=== PATIENT | male | born 1935 | race Caucasian/White ===

== ENCOUNTER 2024-07-12 04:12 | Inpatient (IN) | payer OTHER, MEDICARE, BC ==
--- NOTE | 2024-07-12 04:29 | ED ---
SOB HPI - General Chief Complaint: Shortness of Breath Stated Complaint: FANNY Time Seen by Provider: 07/12/24 04:12 Source: EMS, RN notes reviewed, old records reviewed, Caregiver Mode of arrival: EMS Limitations: altered mental status - History of Present Illness Initial Comments: This is an 89-year-old male to the ER for hypoxia shortness of breath history of COPD MD Complaint: shortness of breath, cough -: hour(s) Severity: moderate Severity scale (1-10): 5 Consistency: constant Improves With: nothing Known History Of: COPD, congestive heart failure Context: recent URI, anxiety, recent illness Associated Symptoms: cough, sputum production Treatments Prior to Arrival: none - Related Data Home Medications Medication Instructions Recorded Confirmed Amiodarone [Cordarone] 200 mg PO DAILY 07/12/24 07/12/24 Apixaban [Eliquis] 5 mg PO BID 07/12/24 07/12/24 Budesonide [Pulmicort] 0.5 mg INHALATION RT-BID 07/12/24 07/12/24 Cholecalciferol [Vitamin D3 (25 25 mcg PO DAILY 07/12/24 07/12/24 Mcg = 1000 Iu)] Empagliflozin [Jardiance] 10 mg PO DAILY 07/12/24 07/12/24 Ferrous Sulfate [Iron (65 MG 325 mg PO DAILY 07/12/24 07/12/24 Elemental)] Gabapentin 600 mg PO HS 07/12/24 07/12/24 INSULIN LISPRO (HumaLOG) [humaLOG] 5 units SQ AC-TID 07/12/24 07/12/24 Ipratropium-Albuterol Nebulize 3 ml INHALATION RT-Q6H 07/12/24 07/12/24 [Duoneb 0.5 mg-3 mg/3 ml Soln] Multivitamins, Thera [Multivitamin 1 tab PO DAILY 07/12/24 07/12/24 (formulary)] Naloxone HCl 0.4 mg IM BID PRN 07/12/24 07/12/24 Omeprazole [PriLOSEC] 40 mg PO DAILY 07/12/24 07/12/24 Pramipexole [Mirapex] 1 mg PO HS 07/12/24 07/12/24 guaiFENesin [guaiFENesin Oral 200 mg PO Q4H PRN 07/12/24 07/12/24 Solution] Previous Rx's Medication Instructions Recorded Atorvastatin [Lipitor] 10 mg PO HS tab 07/14/24 Insulin Glargine,Hum.rec.anlog 30 units SQ HS #0 07/14/24 [Lantus Solostar Pen] Losartan [Cozaar] 50 mg PO DAILY@1300 #0 07/14/24 Metoprolol Tartrate [Lopressor] 25 mg PO BID tab 07/14/24 Pantoprazole [Protonix] 40 mg PO AC-BRKFST tab 07/14/24 Allergies Allergy/AdvReac Type Severity Reaction Status Date / Time warfarin AdvReac Confusion Verified 07/12/24 08:26 Review of Systems ROS Statement: Those systems with pertinent positive or pertinent negative responses have been documented in the HPI. ROS Other: All systems not noted in ROS Statement are negative. Past Medical History Past Medical History: Atrial Fibrillation, COPD, Diabetes Mellitus, Hyperli pidemia, Respiratory Disorder, Sleep Apnea/CPAP/BIPAP History of Any Multi-Drug Resistant Organisms: None Reported Past Surgical History: No Surgical Hx Reported, Pacemaker Past Psychological History: No Psychological Hx Reported Smoking Status: Never smoker Past Alcohol Use History: None Reported Past Drug Use History: None Reported General Exam General appearance: alert, in no apparent distress Head exam: Present: atraumatic, normocephalic, normal inspection Eye exam: Present: normal appearance, PERRL, EOMI. Absent: scleral icterus, conjunctival injection, periorbital swelling ENT exam: Present: normal exam, mucous membranes moist Neck exam: Present: normal inspection. Absent: tenderness, meningismus, lymphadenopathy Respiratory exam: Present: normal lung sounds bilaterally. Absent: respiratory distress, wheezes, rales, rhonchi, stridor Cardiovascular Exam: Present: regular rate, normal rhythm, normal heart sounds. Absent: systolic murmur, diastolic murmur, rubs, gallop, clicks GI/Abdominal exam: Present: soft, normal bowel sounds. Absent: distended, tenderness, guarding, rebound, rigid Extremities exam: Present: normal inspection, full ROM, normal capillary refill. Absent: tenderness, pedal edema, joint swelling, calf tenderness Back exam: Present: normal inspection Neurological exam: Present: alert, oriented X3, CN II-XII intact Psychiatric exam: Present: normal affect, normal mood Skin exam: Present: warm, dry, intact, normal color. Absent: rash Course Vital Signs 07/12/24 07/12/24 07/12/24 04:13 05:01 05:07 Temperature 98.1 F Pulse Rate 68 79 68 Respiratory 18 18 18 Rate Blood Pressure 92/53 O2 Sat by Pulse 96 Oximetry 07/12/24 07/12/24 07/12/24 06:40 07:22 08:18 Temperature 98.8 F Pulse Rate 70 72 71 Respiratory 20 22 22 Rate Blood Pressure 120/64 118/54 104/55 O2 Sat by Pulse 91 L 94 L 97 Oximetry 07/12/24 07/12/24 07/12/24 08:32 08:42 10:20 Temperature Pulse Rate 70 68 73 Respiratory 22 Rate Blood Pressure 98/44 O2 Sat by Pulse 95 100 Oximetry 07/12/24 07/12/24 07/12/24 11:02 11:48 11:58 Temperature Pulse Rate 70 70 76 Respiratory 20 Rate Blood Pressure 99/48 O2 Sat by Pulse 96 Oximetry 07/12/24 07/12/24 07/12/24 12:28 13:31 15:00 Temperature Pulse Rate 75 80 82 Respiratory 20 20 20 Rate Blood Pressure 118/49 99/48 109/45 O2 Sat by Pulse 99 97 97 Oximetry 07/12/24 07/12/24 07/12/24 15:32 15:41 16:00 Temperature Pulse Rate 78 84 85 Respiratory 18 Rate Blood Pressure 100/62 O2 Sat by Pulse 99 Oximetry 07/12/24 17:41 Temperature 98 F Pulse Rate 87 Respiratory 18 Rate Blood Pressure 114/57 O2 Sat by Pulse 96 Oximetry - Reevaluation(s) Reevaluation #1: 07/12/24 04:58 Medical records reviewed Reevaluation #2: Patient remains in significant shortness of breath here in the ER Reevaluation #3: Patient informed of results questions answered Reevaluation #4: Was pt. sent in by a medical professional or institution (, PA, DRY KILN BURNER, urgent care, hospital, or fpc...) When possible be specific @ -no Did you speak to anyone other than the patient for history (EMS, parent, family, police, friend...)? What history was obtained from this source @ -no Did you review nursing and triage notes (agree or disagree)? Why? @ -agree Are old charts reviewed (outside hosp., previous admission, EMS record, old EKG, old radiological studies, urgent care reports/EKG's, fpc records)? Report findings @ -yes Differential Diagnosis (chest pain, altered mental status, abdominal pain women, abdominal pain men, vaginal bleeding, weakness, fever, dyspnea, syncope, headache, dizziness, GI bleed, back pain, seizure, CVA, palpatations, mental health, musculoskeletal)? @ -prior EKG interpreted by me (3pts min.). @ -yes X-rays interpreted by me (1pt min.). @ -yes negative for acute disease CT interpreted by me (1pt min.). @ -no U/S interpreted by me (1pt. min.). @ -no What testing was considered but not performed or refused? (CT, X-rays, U/S, labs)? Why? @ -none What meds were considered but not given or refused? Why? @ -none Did you discuss the management of the patient with other professionals (professionals i.e. , PA, [facility] K[facility] BURNER, lab, RT, psych nurse, socially responsible investment adviser, surgery nurse, teacher, chief security and safety officer, correctional case manager)? Give summary @ -no Was smoking cessation discussed for >3mins.? @ -no Was critical care preformed (if so, how long)? @ -no Were there social determinants of health that impacted care today? How? (Homelessness, low income, unemployed, alcoholism, drug addiction, transportation, low edu. Level, literacy, decrease access to med. care, senior care, rehab)? @ -none Was there de-escalation of care discussed even if they declined (Discuss DNR or withdrawal of care, Hospice)? DNR status @ -no What co-morbidities impacted this encounter? (DM, HTN, Smoking, COPD, CAD, Cancer, CVA, ARF, Chemo, Hep., AIDS, mental health diagnosis, sleep apnea, morbid obesity)? @ -none Was patient admitted / discharged? Hospital course, mention meds given and route, prescriptions, significant lab abnormalities, going to OR and other pertinent info. @ -89 female to ER for COPD exacerbation severe shortness of breath complicated by influenza with pneumonia, viral pneumonia will admit for supportive care for influenza breathing treatments for respiratory distress Admitted Undiagnosed new problem with uncertain prognosis? @ -no Drug Therapy requiring intensive monitoring for toxicity (Heparin, Nitro, Insulin, Cardizem)? @ -no Were any procedures done? @ -no Diagnosis/symptom? @ -COPD influenza and viral pneumonia Acute, or Chronic, or Acute on Chronic? @ -Acute Uncomplicated (without systemic symptoms) or Complicated (systemic symptoms)? @ -Complicated Side effects of treatment? @ -no Exacerbation, Progression, or Severe Exacerbation? @ -exacerbation Poses a threat to life or bodily function? How? (Chest pain, USA, CT, pneumonia, PE, COPD, DKA, ARF, appy, cholecystitis, CVA, Diverticulitis, Homicidal, Suicidal, threat to staff... and all critical care pts) @ -yes extremes of age Reevaluation #5: Differential Dyspnea: Coronary syndrome, arrhythmia, tamponade, asthma, COPD, pulmonary embolism, pneumonia, pneumothorax, pulmonary effusion, anaphylaxis, diabetic ketoacidosis, flailed chest, pulmonary contusion, diaphragmatic rupture, anemia, neuromuscular, this is not meant to be an all-inclusive list. - Consultations Consultation #1: Spoke with admitting physicians who agreed admit this patient Medical Decision Making - Medical Decision Making 89 female to ER strong history of COPD coming in for severe shortness of breath, patient is having acute bronchitis exacerbated by influenza with concern for viral pneumonia on x-ray. Patient will be admitted for breathing treatments and supportive care - Lab Data Result diagrams: 07/13/24 07:48 07/14/24 06:46 Lab Results 07/12/24 07/12/24 07/12/24 Range/Units 04:39 04:43 04:43 WBC 16.1 H (3.8-10.6) k/uL RBC 2.98 L (4.30-5.90) m/uL Hgb 8.6 L (13.0-17.5) gm/dL Hct 27.8 L (39.0-53.0) % MCV 93.4 (80.0-100.0) fL MCH 29.0 (25.0-35.0) pg MCHC 31.0 (31.0-37.0) g/dL RDW 15.3 (11.5-15.5) % Plt Count 154 (150-450) k/uL MPV 9.0 Neutrophils % 96 % Lymphocytes % 2 % Monocytes % 2 % Eosinophils % 0 % Basophils % 0 % Neutrophils # 15.4 H (1.3-7.7) k/uL Lymphocytes # 0.3 L (1.0-4.8) k/uL Monocytes # 0.3 (0-1.0) k/uL Eosinophils # 0.1 (0-0.7) k/uL Basophils # 0.0 (0-0.2) k/uL Hypochromasia Moderate PT 11.3 (10.0-12.5) sec INR 1.0 (<1.2) APTT 23.6 (22.0-30.0) sec VBG pH 7.36 (7.31-7.41) VBG pCO2 63 H (37-51) mmHg VBG HCO3 36 H (24-28) mmol/L Sodium (137-145) mmol/L Potassium (3.5-5.1) mmol/L Chloride (98-107) mmol/L Carbon Dioxide (22-30) mmol/L Anion Gap mmol/L BUN (9-20) mg/dL Creatinine (0.66-1.25) mg/dL Est GFR (CKD-EPI)AfAm (>60 ml/min/1.73 sqM) Est GFR (CKD-EPI)NonAf (>60 ml/min/1.73 sqM) Glucose (74-99) mg/dL Calcium (8.4-10.2) mg/dL Magnesium (1.6-2.3) mg/dL Total Bilirubin (0.2-1.3) mg/dL AST (17-59) U/L ALT (4-49) U/L Alkaline Phosphatase (38-126) U/L Troponin I (0.000-0.034) ng/mL NT-Pro-B Natriuret Pep pg/mL Total Protein (6.3-8.2) g/dL Albumin (3.5-5.0) g/dL Procalcitonin (0.02-0.50) ng/mL 07/12/24 07/12/24 07/12/24 Range/Units 04:43 04:43 04:43 WBC (3.8-10.6) k/uL RBC (4.30-5.90) m/uL Hgb (13.0-17.5) gm/dL Hct (39.0-53.0) % MCV (80.0-100.0) fL MCH (25.0-35.0) pg MCHC (31.0-37.0) g/dL RDW (11.5-15.5) % Plt Count (150-450) k/uL MPV Neutrophils % % Lymphocytes % % Monocytes % % Eosinophils % % Basophils % % Neutrophils # (1.3-7.7) k/uL Lymphocytes # (1.0-4.8) k/uL Monocytes # (0-1.0) k/uL Eosinophils # (0-0.7) k/uL Basophils # (0-0.2) k/uL Hypochromasia PT (10.0-12.5) sec INR (<1.2) APTT (22.0-30.0) sec VBG pH (7.31-7.41) VBG pCO2 (37-51) mmHg VBG HCO3 (24-28) mmol/L Sodium 135 L (137-145) mmol/L Potassium 4.7 (3.5-5.1) mmol/L Chloride 98 (98-107) mmol/L Carbon Dioxide 36 H (22-30) mmol/L Anion Gap 1 mmol/L BUN 44 H (9-20) mg/dL Creatinine 1.13 (0.66-1.25) mg/dL Est GFR (CKD-EPI)AfAm 67 (>60 ml/min/1.73 sqM) Est GFR (CKD-EPI)NonAf 58 (>60 ml/min/1.73 sqM) Glucose 257 H (74-99) mg/dL Calcium 8.1 L (8.4-10.2) mg/dL Magnesium 2.5 H (1.6-2.3) mg/dL Total Bilirubin 0.6 (0.2-1.3) mg/dL AST 40 (17-59) U/L ALT 36 (4-49) U/L Alkaline Phosphatase 111 (38-126) U/L Troponin I 0.016 (0.000-0.034) ng/mL NT-Pro-B Natriuret Pep 707 pg/mL Total Protein 5.0 L (6.3-8.2) g/dL Albumin 2.7 L (3.5-5.0) g/dL Procalcitonin 0.09 (0.02-0.50) ng/mL - EKG Data -: EKG Interpreted by Me (EKG is sinus 66 TX 142 QRS 102 QTc 442) - Radiology Data Radiology results: report reviewed (Chest x-ray shows bibasilar infiltrate), image reviewed Disposition Clinical Impression: COPD (chronic obstructive pulmonary disease), Flu, Acute exacerbation of chronic obstructive pulmonary disease, Influenza A Disposition: ADMITTED IP TO THIS HOSP Condition: Serious Is patient prescribed a controlled substance at d/c from ED?: No Time of Disposition: 05:00
[2024-07-12 04:49] LABS: VBG PH 7.36 (7.31-7.41)
[2024-07-12 04:50] LABS: Basophils % (A) 0 %; Eosinophils # (A) 0.1 k/uL (0-0.7); Eosinophils % (A) 0 %; HCT 27.8 % (39.0-53.0); HGB 8.6 gm/dL (13.0-17.5); Hypochromasia Moderate; Lymphocytes # (A) 0.3 k/uL (1.0-4.8); Lymphocytes % (A) 2 %; MCV 93.4 fL (80.0-100.0); Monocytes # (A) 0.3 k/uL (0-1.0); Monocytes % (A) 2 %; Neutrophils # (A) 15.4 k/uL (1.3-7.7); Neutrophils % (A) 96 %; Platelet Count 154 k/uL (150-450); RBC 2.98 m/uL (4.30-5.90); RDW 15.3 % (11.5-15.5); WBC 16.1 k/uL (3.8-10.6)
[2024-07-12] MEDS: IPRATROPIUM-ALBUTEROL 3 ML NEB INHALATION STA ×2 (04:57→08:21)
[2024-07-12 04:59] LABS: ALT 36 U/L (4-49); AST 40 U/L (17-59); African American GFR (CKD) 67 (>60 ml/min/1.73 sqM); Albumin 2.7 g/dL (3.5-5.0); Alkaline Phosphatase 111 U/L (38-126); Anion Gap 1 mmol/L; Blood Urea Nitrogen 44 mg/dL (9-20); Calcium 8.1 mg/dL (8.4-10.2); Carbon Dioxide 36 mmol/L (22-30); Chloride 98 mmol/L (98-107); Glucose 257 mg/dL (74-99); Magnesium 2.5 mg/dL (1.6-2.3); Non-African American GFR(CKD) 58 (>60 ml/min/1.73 sqM); Potassium 4.7 mmol/L (3.5-5.1); Sodium 135 mmol/L (137-145); Total Bilirubin 0.6 mg/dL (0.2-1.3)
[2024-07-12 05:03] LABS: Partial Thromboplastin Time 23.6 sec (22.0-30.0); Prothrombin Time 11.3 sec (10.0-12.5)
[2024-07-12] MEDS ORDERED: NALOXONE 0.4 MG/ML 1 ML VIAL IV PRN (05:05)
[2024-07-12] MEDS ORDERED: MORPHINE SULFATE 4 MG/ML SYRINGE IV PRN (05:05)
[2024-07-12] MEDS ORDERED: ONDANSETRON 4 MG/2 ML VIAL IVP PRN (05:05)
[2024-07-12 05:07] LABS: NT-Pro-B-Type Natriuretic Pept 707 pg/mL
[2024-07-12] MEDS: DEXAMETHASONE SOD PHOSPHATE 10 MG/ML 1 ML VIAL IVP STA (05:26)
[2024-07-12] MEDS: SODIUM CHLORIDE 0.9% 1,000 ML IV SCH (05:29)
[2024-07-12] MEDS: SODIUM CHLORIDE 0.9% 1,000 ML IV STA (05:29)
--- NOTE | 2024-07-12 05:51 | XR ---
EXAM: XR Chest, 1 View CLINICAL HISTORY: sob TECHNIQUE: Frontal view of the chest. COMPARISON: No relevant prior studies available. FINDINGS: Reverse lordotic positioning with patient's head and neck obscuring the upper mid lung field. Heart is enlarged. Left subclavian pacemaker. No definite CHF. Bibasilar atelectasis. Cannot exclude left basilar infiltrate. No pleural effusion or definite pneumothorax. Bones are osteopenic. IMPRESSION: Bibasilar atelectasis. Possible left basilar infiltrate.
[2024-07-12 06:24] LABS: Influenza A Detected (Not Detectd); Influenza B Not Detected (Not Detectd); RSV Not Detected (Not Detectd)
[2024-07-12] MEDS ORDERED: IPRATROPIUM-ALBUTEROL 3 ML NEB INHALATION PRN (06:39)
[2024-07-12] MEDS ORDERED: DEXTROSE 50% SYRINGE 50 ML IVP PRN ×4 (06:40→23:14)
--- NOTE | 2024-07-12 07:04 | P.CNPUL ---
History of Present Illness Consult date: 07/12/24 Requesting physician: Vitaliy Medina Reason for consult: COPD Chief complaint: Noted to be short of breath and hypoxic at [facility] History of present illness: Patient sent in from [facility] this morning, after being noted to be short of breath and hypoxic with an SpO2 of 65%. Patient is a poor historian; however, his family is present at bedside and able to supplement HPI. Patient is an 89 -year-old male with past medical history significant for COPD, chronic oxygen dependence on 4 L/min nasal cannula 18/01, heart failure, pacemaker, atrial fibrillation, diabetes mellitus, hypertension, hyperlipidemia, among other things. Patient is actually from [place], was at [facility] for rehab after being treated at an outside hospital for influenza/pneumonia approximately 1 to 2 weeks ago per patient's . While at [facility], reportedly noted to be short of breath and hypoxic with an SpO2 of 65%, EMS was called and patient was transferred to [facility]. He is currently being evaluated the emergency department, room 1. He is sleeping in bed, arouses to verbal stimu and brief questioning, then falls back asleep. He is an overall poor historian. He has severe kyphosis of the spine. He is on 4 L/min nasal cannula, does not appear distressed. SpO2 is reading 93% on bedside monitor. Family states that he chronically wears 4 L of oxygen. They also state he has COPD, but has never been a tobacco smoker. He did had a VBG which showed a pH of 7.36 and pCO2 of 63. Chest x-ray done in the emergency department showing severe cervical kyphosis, cardiomegaly, bibasilar atelectasis, with possible left basilar infiltrate. No pleural effusions or pneumothoraces. There is a pacemaker generator in the left chest. Does have pitting lower extremity edema right greater than left. He was afebrile on admission. CBC: WBC count 16.1, hemoglobin 8.6, hematocrit 27.8, platelets 154. CMP: Sodium 135, potassium 4.7, chloride 98, serum bicarb 36, BUN 44, creatinine 1.13, glucose 257. LFTs unremarkable. Troponin 0.016. NT proBNP 707. EKG: Normal sinus rhythm, rate 66 bpm, no obvious acute ischemic changes. Cepheid 4 Plex pending. Current most recent vitals: Temperature 98.1 F, heart rate 68 bpm, blood pressure 92/53 mmHg, tachypneic breathing in the mid 20s, SpO2 is 93% on 4 L/min nasal cannula. Review of Systems ROS unobtainable: due to mental status Past Medical History Past Medical History: Atrial Fibrillation, COPD, Diabetes Mellitus, Hyperlipidemia, Respiratory Disorder, Sleep Apnea/CPAP/BIPAP History of Any Multi-Drug Resistant Organisms: None Reported Past Surgical History: No Surgical Hx Reported, Pacemaker Past Psychological History: No Psychological Hx Reported Smoking Status: Never smoker Past Alcohol Use History: None Reported Past Drug Use History: None Reported Medications and Allergies Allergies Allergy/AdvReac Type Severity Reaction Status Date / Time warfarin AdvReac Confusion Verified 07/12/24 04:44 Physical Exam Vitals: Vital Signs Temp Pulse Resp BP Pulse Ox 07/12/24 05:07 68 18 07/12/24 05:01 79 18 07/12/24 04:13 98.1 F 68 18 92/53 96 Intake and Output 07/11/24 07/11/24 07/12/24 14:59 22:59 06:59 Other: Weight 65.771 kg GENERAL EXAM: Lethargic, 89-year-old male, on 4 L/min nasal cannula, nondistressed. Awakens to verbal stimuli and brief questioning and then falls back to sleep. HEAD: Normocephalic and atraumatic EYES: Normal reaction of pupils, equal size. NOSE: Clear with pink turbinates. THROAT: No erythema or exudates. NECK: No masses, no JVD. Severe kyphosis CHEST: No chest wall deformity. Left chest implanted device. LUNGS: Equal air entr bibasilar inspiratory crackles. No wheeze, rhonchi or dullness. On 4 L/min nasal cannula. SpO2 is 93% on bedside monitor. No conversational dyspnea or accessory muscle use.. CVS: S1 and S2 normal with no audible murmur, regular rhythm. No extra heart sounds ABDOMEN: No hepatosplenomegaly, active bowel sounds, no guarding or rigidity. SPINE: No scoliosis or deformity SKIN: No rashes CENTRAL NERVOUS SYSTEM: No focal deficits, tone is normal in all 4 extremities. EXTREMITIES: There is 2-3+ pitting lower extremity edema, right greater than l eft. No clubbing, or cyanosis. Peripheral pulses are intact. Results - Laboratory Findings CBC and BMP: 07/12/24 04:43 07/12/24 04:43 PT/INR, D-dimer PT 11.3 sec (10.0-12.5) 07/12/24 04:43 INR 1.0 (<1.2) 07/12/24 04:43 Abnormal lab findings: Abnormal Labs 07/12/24 07/12/24 07/12/24 04:39 04:43 04:43 WBC 16.1 H RBC 2.98 L Hgb 8.6 L Hct 27.8 L Neutrophils # 15.4 H Lymphocytes # 0.3 L VBG pCO2 63 H VBG HCO3 36 H Sodium 135 L Carbon Dioxide 36 H BUN 44 H Glucose 257 H Calcium 8.1 L Magnesium 2.5 H Total Protein 5.0 L Albumin 2.7 L - Diagnostic Findings Chest x-ray: image reviewed Assessment and Plan Assessment: Acute on chronic hypoxemic respiratory failure, currently back on his 4 L/min nasal cannula which he wears 18/01, chest x-ray showing severe cervical kyphosis, cardiomegaly, atelectasis versus possible left basilar infiltrate. No pleural effusions or pneumothoraces. There is a pacemaker generator in the left chest. NT proBNP only 707. Recent influenza infection/hospitalization at outside facility; is positive for influenza A on viral screen at our facility. Acute leukocytosis Possible exacerbation of chronic obstructive pulmonary disease Chronic hypoxemic respiratory failure, on 4 L/min nasal cannula, 18/01, likely secondary to above History of heart failure with unknown ejection fraction Bilateral lower extremity edema, right greater than left History of atrial fibrillation, currently normal sinus rhythm Normocytic, normochromic anemia; monitor for acute blood loss History of hypertension History of hyperlipidemia Plan: Patient's medications, labs, chest x-ray reviewed Continue supplemental oxygen maintain oxygen saturation of 90% or greater Place the patient on DuoNebs [id number] and IV Solu-Medrol Cepheid 4 Plex positive for influenza A, possible residual finding from recent reported influenza infection. Doubt the patient would benefit from Tamiflu, as initial onset of symptoms was 1 to 2 weeks ago. Will add empiric antibiotics Check procalcitonin Add Lasix 20 mg daily Check venous Doppler of lower extremities GI prophylaxis: Protonix DVT prophylaxis: Subcutaneous heparin Will continue to follow, additional recommendations to follow I have personally seen and examined the patient, performed the documentation and the assessment and plan as written. Number of minutes spent on the visit:20 Time with Patient: Greater than 30
[2024-07-12 07:27] LABS: Glucose,Whole Blood 338 mg/dL (70-110)
[2024-07-12] MEDS: INSULIN ASPART (NovoLOG) 100 UNIT/ML VIAL SQ SCH (07:32)
--- NOTE | 2024-07-12 08:04 | US ---
EXAMINATION TYPE: US venous doppler duplex LE DATE OF EXAM: 07/12/2024 7:55 AM COMPARISON: NONE CLINICAL INDICATION: Male, 89 years old with history of rule out DVT; No redness or swelling. On blo od thinners., Pain TECHNIQUE: The lower extremity deep venous system is examined utilizing real time linear array sonog ana rosa with graded compression, color doppler sonography, and spectral doppler. SIDE PERFORMED: Bilateral FINDINGS: VESSELS IMAGED: Common Femoral Vein Deep Femoral Vein Greater Saphenous Vein * Femoral Vein Popliteal Vein Small Saphenous Vein * Proximal Calf Veins (* superficial vessels) Right Leg: Negative for DVT, Color Doppler imaging shows patency of the vessels. Spectral waveforms are within normal limits. Left Leg: Negative for DVT, Color Doppler imaging shows patency of the vessels. Spectral waveforms a re within normal limits. IMPRESSION: No ultrasound evidence for deep venous thrombosis. [facility], , 07/12/2024 8:02 AM
[2024-07-12] MEDS: HEPARIN SODIUM,PORCINE 5,000 UNIT/ML 1 ML VIAL SQ SCH (08:05)
[2024-07-12] MEDS: methylPREDNISolone SOD SUCCI 40 MG/ML 1 ML VIAL IV SCH (08:05)
[2024-07-12] MEDS: FUROSEMIDE 10 MG/ML 2 ML VIAL IV SCH (08:05)
[2024-07-12] MEDS: AZITHROMYCIN 500 MG TAB PO SCH (08:06)
[2024-07-12] MEDS: PANTOPRAZOLE 40 MG TABLET PO SCH (08:06)
[2024-07-12] MEDS: IPRATROPIUM-ALBUTEROL 3 ML NEB INHALATION SCH (08:29)
[2024-07-12] MEDS ORDERED: NON FORMULARY DRUG (Naloxone Hcl [Naloxone Hcl] 0.4 MG/ML Cartridge) IM PRN (10:35)
[2024-07-12] MEDS: BUDESONIDE 0.5 MG/2 ML NEBU INHALATION SCH (10:41)
[2024-07-12] MEDS ORDERED: NON FORMULARY DRUG (Omeprazole 20 MG Capsule.Dr) PO SCH (10:45)
[2024-07-12] MEDS: METOPROLOL TARTRATE 25 MG TAB PO SCH (11:03)
[2024-07-12] MEDS: AMIODARONE 200 MG TAB PO SCH (11:03)
[2024-07-12] MEDS: CHOLECALCIFEROL 25 MCG (1000 IU) TABLET PO SCH (11:03)
[2024-07-12] MEDS: DAPAGLIFLOZIN PROPANEDIOL 5 MG TABLET PO SCH (11:03)
[2024-07-12] MEDS: APIXABAN 5 MG TAB PO SCH (11:03)
[2024-07-12 12:13] LABS: Glucose,Whole Blood 362 mg/dL (70-110)
[2024-07-12 16:54] LABS: Glucose,Whole Blood 449 mg/dL (70-110)
[2024-07-12] MEDS: INSULIN ASPART (NovoLOG) 100 UNIT/ML VIAL SQ ONE (17:27)
--- NOTE | 2024-07-12 17:51 | P.HPIM ---
History of Present Illness H&P Date: 07/12/24 Chief Complaint: Short of breath I am covering for Dr. Star Max, who is unwell Pleasant 89-year-old patient who follows with Dr. Costa. Patient was initial ly treated at [facility] diagnosed with influenza A. Patient then was admitted to [facility] for rehab for about 3 weeks. In the last 5 days patient became increasingly short of breath. Cough. No fever. Appetite okay. Normally uses oxygen 4 L. As per the EMS report patient had dropped his pulse ox at midnight. Patient is given albuterol treatments prednisone Mucinex. His pulse ox dropped again. Patient also having expiratory wheezing. Patient then transported on 5 L of oxygen. Patient now signed in the ER. Family at the bedside including his . Patient actually feeling a bit better. Patient again tested positive for influenza A. Patient was seen by pulmonary Dr. Riley earlier today. Given that symptoms present for some time not for any Tamiflu for now nucleated Review of systems: GEN.: Tired EYES: None HEENT: [Slight decreased hearing NECK: None RESPIRATORY: As above CARDIOVASCULAR: None GASTROINTESTINAL: None GENITOURINARY: None MUSCULOSKELETAL: Joint pain LYMPHATICS: None HEMATOLOGICAL: None PSYCHIATRY: None NEUROLOGICAL: Was using a cane Social history: Currently getting rehab at [facility]. He and his are living with the daughter prior to that. 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 EYES: Pupils equal. Conjunctiva mahad l. HEENT: External appearance of nose and ears normal, oral cavity grossly normal. NECK: JVD not raised; masses not palpable. HEART: First and second heart sounds are normal; no edema. LUNGS: Respiratory rate increased, diminished breath sounds some wheezing. ABDOMEN: Soft, nontender, liver spleen not palpable, no masses palpable. PSYCH: Alert and oriented x3; mood and affect mahad l. MUSCULOSKELETAL:No Clubbing/cyanosis;muscles-grossly intact. Kyphotic. OA. NEUROLOGICAL: Cranial nerves grossly intact; no facial asymmetry, power and sensation grossly intact. LYMPHATICS: No lymph nodes palpable in the axilla and neck INVESTIGATIONS, reviewed in the clinical context: July 12, 2024: White count 16.1 hemoglobin 8.6 platelets 154 ABG: pH 7.3 pCO2 63 sodium 135 potassium 4.7 BUN 44 creatinine 1.13 blood glucose 257 Influenza type A PCR detected [influenza type B, RSV, COVID-19: Not detected] EKG tracing personally reviewed by me-normal sinus rhythm. Chest x-ray film personally reviewed by me-atelectasis/infiltrate Venous ultrasound Doppler lower extremity: Negative for DVT Assessment plan: -Complicated pneumonia suspect gram-negative organism., Causing hypoxia IV ceftriaxone. Zithromax. -Acute COPD exacerbation IV Solu-Medrol. DuoNeb. -Acute on chronic hypoxic respiratory failure. Patient normally on 4 L of oxygen. Requiring 5 L of oxygen. -Kyphosis -Hyperlipidemia Zocor 20 mg nightly -Restless leg syndrome Mirapex 1 mg nightly -Chronic medical debility. At the baseline does use a cane. Currently at rehab at [facility] -GERD PPI -Essential hypertension Lopressor 50 mg twice daily. Cozaar 50 mg a day. -Paroxysmal atrial fibrillation currently in sinus rhythm Eliquis. Amiodarone. Lopressor 25 mg twice daily -Full code -Diabetes mellitus type 2, chronically on insulin, uncontrolled with hyperglycem ia secondary to steroids Increase Lantus to 30 units at night. Continue oral medications. Accu-Cheks with sliding scale insulin. Care was discussed with patient and family at the bedside. Past Medical History Past Medical History: Atrial Fibrillation, COPD, Diabetes Mellitus, Hyperlipidemia, Respiratory Disorder, Sleep Apnea/CPAP/BIPAP History of Any Multi-Drug Resistant Organisms: None Reported Past Surgical History: No Surgical Hx Reported, Pacemaker Past Psychological History: No Psychological Hx Reported Smoking Status: Never smoker Past Alcohol Use History: None Reported Past Drug Use History: None Reported Medications and Allergies Home Medications Medication Instructions Recorded Confirmed Type Amiodarone [Cordarone] 200 mg PO DAILY 07/12/24 07/12/24 History Apixaban [Eliquis] 5 mg PO BID 07/12/24 07/12/24 History Budesonide [Pulmicort] 0.5 mg INHALATION RT-BID 07/12/24 07/12/24 History Cholecalciferol [Vitamin D3 (25 25 mcg PO DAILY 07/12/24 07/12/24 History Mcg = 1000 Iu)] Empagliflozin [Jardiance] 10 mg PO DAILY 07/12/24 07/12/24 History Ferrous Sulfate [Feosol] 325 mg PO DAILY 07/12/24 07/12/24 History Gabapentin 600 mg PO HS 07/12/24 07/12/24 History INSULIN LISPRO (HumaLOG) [humaLOG] 5 units SQ AC-TID 07/12/24 07/12/24 History Insulin Glargine,Hum.rec.anlog 15 units SQ HS 07/12/24 07/12/24 History [Lantus Solostar Pen] Ipratropium-Albuterol Nebulize 3 ml INHALATION RT-Q6H 07/12/24 07/12/24 History [Duoneb 0.5 mg-3 mg/3 ml Soln] Losartan [Cozaar] 50 mg PO DAILY 07/12/24 07/12/24 History Metoprolol Tartrate [Lopressor] 50 mg PO BID 07/12/24 07/12/24 History Multivitamins, Thera [Multivitamin 1 tab PO DAILY 07/12/24 07/12/24 History (formulary)] Naloxone HCl 0.4 mg IM BID PRN 07/12/24 07/12/24 History Naloxone HCl [Narcan] 4 mg NASAL BID PRN 07/12/24 07/12/24 History Omeprazole [PriLOSEC] 40 mg PO DAILY 07/12/24 07/12/24 History Pramipexole [Mirapex] 1 mg PO HS 07/12/24 07/12/24 History Simvastatin [Zocor] 20 mg PO HS 07/12/24 07/12/24 History guaiFENesin [guaiFENesin Oral 200 mg PO Q4H PRN 07/12/24 07/12/24 History Solution] Allergies Allergy/AdvReac Type Severity Reaction Status Date / Time warfarin AdvReac Confusion Verified 07/12/24 08:26 Physical Exam Vitals: Vital Signs Temp Pulse Resp BP Pulse Ox 07/12/24 10:20 73 22 98/44 100 07/12/24 08:42 68 07/12/24 08:32 70 95 07/12/24 08:18 71 22 104/55 97 07/12/24 07:22 98.8 F 72 22 118/54 94 L 07/12/24 06:40 70 20 120/64 91 L 07/12/24 05:07 68 18 07/12/24 05:01 79 18 07/12/24 04:13 98.1 F 68 18 92/53 96 Intake and Output 07/11/24 07/12/24 07/12/24 22:59 06:59 14:59 Other: Weight 65.771 kg Results CBC & Chem 7: 07/12/24 04:43 07/12/24 04:43 Labs: Abnormal Lab Results - Last 24 Hours (Table) 07/12/24 07/12/24 07/12/24 Range/Units 04:39 04:43 04:43 WBC 16.1 H (3.8-10.6) k/uL RBC 2.98 L (4.30-5.90) m/uL Hgb 8.6 L (13.0-17.5) gm/dL Hct 27.8 L (39.0-53.0) % Neutrophils # 15.4 H (1.3-7.7) k/uL Lymphocytes # 0.3 L (1.0-4.8) k/uL VBG pCO2 63 H (37-51) mmHg VBG HCO3 36 H (24-28) mmol/L Sodium 135 L (137-145) mmol/L Carbon Dioxide 36 H (22-30) mmol/L BUN 44 H (9-20) mg/dL Glucose 257 H (74-99) mg/dL POC Glucose (mg/dL) (70-110) mg/dL Calcium 8.1 L (8.4-10.2) mg/dL Magnesium 2.5 H (1.6-2.3) mg/dL Total Protein 5.0 L (6.3-8.2) g/dL Albumin 2.7 L (3.5-5.0) g/dL Influenza Type A (PCR) (Not Detectd) 07/12/24 07/12/24 Range/Units 05:38 07:26 WBC (3.8-10.6) k/uL RBC (4.30-5.90) m/uL Hgb (13.0-17.5) gm/dL Hct (39.0-53.0) % Neutrophils # (1.3-7.7) k/uL Lymphocytes # (1.0-4.8) k/uL VBG pCO2 (37-51) mmHg VBG HCO3 (24-28) mmol/L Sodium (137-145) mmol/L Carbon Dioxide (22-30) mmol/L BUN (9-20) mg/dL Glucose (74-99) mg/dL POC Glucose (mg/dL) 338 H (70-110) mg/dL Calcium (8.4-10.2) mg/dL Magnesium (1.6-2.3) mg/dL Total Protein (6.3-8.2) g/dL Albumin (3.5-5.0) g/dL Influenza Type A (PCR) Detected A (Not Detectd)
[2024-07-12 20:35] LABS: Glucose,Whole Blood 518 mg/dL (70-110)
[2024-07-12 20:35] LABS: Glucose,Whole Blood 524 mg/dL (70-110)
[2024-07-12] MEDS ORDERED: INSULIN DETEMIR (LEVEMIR) 100 UNIT/ML SYR SQ SCH (21:00)
[2024-07-12] MEDS: PRAMIPEXOLE 1 MG TAB PO SCH (21:10)
[2024-07-12] MEDS: ATORVASTATIN 10 MG TAB PO SCH (21:10)
[2024-07-12] MEDS: GABAPENTIN 300 MG CAP PO SCH (21:11)
[2024-07-12] MEDS: INSULIN DETEMIR (LEVEMIR) 100 UNIT/ML SYR SQ SCH (21:50)
[2024-07-12 22:23] LABS: Glucose,Whole Blood 470 mg/dL (70-110)
[2024-07-12] MEDS: INSULIN REGULAR 100 UNIT in SODIUM CHLORIDE 0.9% 100 ML IV SCH (23:57)
[2024-07-12 23:59] LABS: Glucose,Whole Blood 397 mg/dL (70-110)
[2024-07-13 01:03] LABS: Glucose,Whole Blood 314 mg/dL (70-110)
[2024-07-13 02:20] LABS: Glucose,Whole Blood 255 mg/dL (70-110)
[2024-07-13 03:10] LABS: Glucose,Whole Blood 139 mg/dL (70-110)
[2024-07-13 04:08] LABS: Glucose,Whole Blood 108 mg/dL (70-110)
[2024-07-13 05:08] LABS: Glucose,Whole Blood 132 mg/dL (70-110)
[2024-07-13 06:07] LABS: Glucose,Whole Blood 131 mg/dL (70-110)
[2024-07-13 07:09] LABS: Glucose,Whole Blood 106 mg/dL (70-110)
--- NOTE | 2024-07-13 08:03 | XR ---
EXAMINATION TYPE: XR chest 1V portable DATE OF EXAM: 07/13/2024 6:47 AM COMPARISON: Chest radiographs from 07/12/2024. CLINICAL INDICATION: Male, 89 years old with history of left lung atelectasis vs infiltrate; TECHNIQUE: XR chest 1V portable Frontal view of the chest. FINDINGS: Lungs/Pleura: There is no evidence of pleural effusion, focal consolidation, or pneumothorax. Pulmonary vascularity: Unremarkable. Heart/mediastinum: Cardiomediastinal silhouette is enlarged. Atherosclerotic calcifications are seen in the aorta. Two lead cardiac conduction device overlying the left hemithorax with lead tips projec ting over the right ventricle and right atrium. Post aortic valve repair changes. Musculoskeletal: No acute osseous pathology. IMPRESSION: Stable exam with cardiomegaly and interstitial prominence.. [facility], , 07/13/2024 8:01 AM
[2024-07-13 08:22] LABS: Glucose,Whole Blood 82 mg/dL (70-110)
[2024-07-13] MEDS: MULTIVITAMINS, THERA 1 EACH TAB PO SCH (08:41)
[2024-07-13] MEDS: FERROUS SULFATE 325 MG TAB PO SCH (08:41)
[2024-07-13 09:18] LABS: Glucose,Whole Blood 116 mg/dL (70-110)
[2024-07-13 10:17] LABS: Glucose,Whole Blood 254 mg/dL (70-110)
[2024-07-13 10:47] LABS: ALT 46 U/L (10-49); AST 36 U/L (14-35); Albumin 3.4 g/dL (3.8-4.9); Albumin/Globulin Ratio 1.55 Ratio (1.60-3.17); Alkaline Phosphatase 84 U/L (41-126); BUN/Creat Ratio 29.62 Ratio (12.00-20.00); Blood Urea Nitrogen 38.5 mg/dL (9.0-27.0); Calcium 8.1 mg/dL (8.7-10.3); Carbon Dioxide 28.8 mmol/L (21.6-31.8); Chloride 100 mmol/L (96-109); Globulin 2.2 g/dL (1.6-3.3); Glucose 76 mg/dL (70-110); Potassium 4.4 mmol/L (3.5-5.5); Sodium 141 mmol/L (135-145); Total Bilirubin 0.3 mg/dL (0.3-1.2); Total Protein 5.6 g/dL (6.2-8.2)
[2024-07-13 11:06] LABS: Glucose,Whole Blood 152 mg/dL (70-110)
[2024-07-13 11:12] LABS: HCT 29.5 % (39.6-50.0); HGB 8.8 g/dL (13.0-17.0); MCH 28.7 pg (27.0-32.0); MCHC 29.8 g/dL (32.0-37.0); MCV 96.1 FL (80.0-97.0); Mean Platelet Volume 11.6 FL (9.5-12.2); NRBC Per 100 WBC 0 X 10*3/uL (0.00-0.01); Platelet Count 155 X 10*3/uL (140-440); RBC 3.07 X 10*6/uL (4.40-5.60); RDW 15.4 % (11.5-14.5); WBC 32.98 X 10*3/uL (4.50-10.00)
[2024-07-13 11:51] LABS: Basophils # (A) 0.03 X 10*3/uL (0.00-0.10); Basophils % (A) 0.1 %; Eosinophils # (A) 0 X 10*3/uL (0.04-0.35); Eosinophils % (A) 0 %; Lymphocytes # (A) 0.42 X 10*3/uL (0.90-5.00); Lymphocytes % (A) 1.3 %; Monocytes # (A) 0.68 X 10*3/uL (0.20-1.00); Monocytes % (A) 2.1 %; Neutrophils # (A) 31.43 X 10*3/uL (1.80-7.70); Neutrophils % (A) 95.2 %; RBC Morphology Normal (Normal)
[2024-07-13 12:22] LABS: Glucose,Whole Blood 128 mg/dL (70-110)
[2024-07-13 13:04] LABS: Glucose,Whole Blood 143 mg/dL (70-110)
--- NOTE | 2024-07-13 13:37 | P.PN ---
Subjective Progress Note Date: 07/13/24 Patient sent in from [facility] this morning, after being noted to be short of breath and hypoxic with an SpO2 of 65%. Patient is a poor historian; however, his family is present at bedside and able to supplement HPI. Patient is an 89-year-old male with past medical history significant for COPD, chronic oxygen dependence on 4 L/min nasal cannula 18/01, heart failure, pacemaker, atrial fibrillation, diabetes mellitus, hypertension, hyperlipidemia, among other things. Patient is actually from [place], was at [facility] for rehab after being treated at an outside hospital for influenza/pneumonia approximately 1 to 2 weeks ago per patient's . While at [facility], reportedly noted to be short of breath and hypoxic with an SpO2 of 65%, EMS was called and patient was transferred to [facility]. He is currently being evaluated the emergency department, room 1. He is sleeping in bed, arouses to verbal stimu and brief questioning, then falls back asleep. He is an overall poor historian. He has severe kyphosis of the spine. He is on 4 L/min nasal cannula, does not appear distressed. SpO2 is reading 93% on bedside monitor. Family states that he chronically wears 4 L of oxygen. They also state he has COPD, but has never been a tobacco smoker. He did had a VBG which showed a pH of 7.36 and pCO2 of 63. Chest x-ray done in the emergency department showing severe cervical kyphosis, cardiomegaly, bibasilar atelectasis, with possible left basilar infiltrate. No pleural effusions or pneumothoraces. There is a pacemaker generator in the left chest. Does have pitting lower extremity edema right greater than left. He was afebrile on admission. CBC: WBC count 16.1, hemoglobin 8.6, hematocrit 27.8, platelets 154. CMP: Sodium 135, potassium 4.7, chloride 98, serum bicarb 36, BUN 44, creatinine 1.13, glucose 257. LFTs unremarkable. Troponin 0.016. NT proBNP 707. EKG: Normal sinus rhythm, rate 66 bpm, no obvious acute ischemic changes. Cepheid 4 Plex pending. Current most recent vitals: Temperature 98.1 F, heart rate 68 bpm, blood pressure 92/53 mmHg, tachypneic breathing in the mid 20s, SpO2 is 93% on 4 L/min nasal cannula. The patient is seen today July 13, 2024 in follow-up of the selective care unit. He is currently sitting up in bed. Awake and alert in no acute distress. Maintaining O2 saturations in the 90s on 4 L/min per nasal cannula. He remains on DuoNeb inhalations, Pulmicort inhalations, Solu-Medrol. Anticoagulated with Eliquis. Remains on IV Lasix. Remains on ceftriaxone and azithromycin. White count 32.9. Hemoglobin 8.8. Platelets 155. Sodium 141. Potassium 4.4. Bicarb 29. BUN 38. Creatinine 1.3. Glucose 143. Procalcitonin was negative at 0.09. Chest x-ray shows stable exam with cardiomegaly and interstitial prominence. Objective - Vital Signs Vital signs: Vital Signs Temp 97.6 F 07/13/24 11:44 Pulse 60 07/13/24 11:44 Resp 17 07/13/24 11:44 BP 147/81 07/13/24 11:44 Pulse Ox 93 L 07/13/24 11:44 FiO2 Intake & Output 07/12/24 07/13/24 07/13/24 18:59 06:59 18:59 Intake Total 30.954 153.334 Output Total 1050 Balance -1019.046 153.334 Weight 65.771 kg Intake: IV 10 Insulin Regular 100 unit 10 In Sodium Chloride 0.9% 100 ml @ Titrate IV .Q0M ANJUM Rx#:[id number] Intake, IV Titration 20.954 3.334 Amount Insulin Regular 100 unit 20.954 3.334 In Sodium Chloride 0.9% 100 ml @ Titrate IV .Q0M ANJUM Rx#:[id number] Oral 150 Output: Urine 1050 Other: Voiding Method External Catheter External Catheter # Voids 1 - Exam GENERAL EXAM: Awake, alert, 89-year-old male, on 4 L/min nasal cannula, nondistressed. HEAD: Normocephalic and atraumatic EYES: Normal reaction of pupils, equal size. NOSE: Clear with pink turbinates. THROAT: No erythema or exudates. NECK: No masses, no JVD. Severe kyphosis CHEST: No chest wall deformity. Left chest implanted device. LUNGS: Equal air entr bibasilar inspiratory crackles. No wheeze, rhonchi or dullness. No conversational dyspnea. CVS: S1 and S2 normal with no audible murmur, regular rhythm. No extra heart sounds ABDOMEN: No hepatosplenomegaly, active bowel sounds, no guarding or rigidity. SPINE: Kyphoscoliosis SKIN: No rashes CENTRAL NERVOUS SYSTEM: No focal deficits, tone is normal in all 4 extremities. EXTREMITIES: There is 2-3+ pitting lower extremity edema, right greater than l eft. No clubbing, or cyanosis. Peripheral pulses are intact. - Labs CBC & Chem 7: 07/13/24 07:48 07/13/24 07:48 Labs: Abnormal Lab Results - Last 24 Hours (Table) 07/12/24 07/12/24 07/12/24 Range/Units 16:53 20:33 20:34 WBC (4.50-10.00) X 10*3/uL RBC (4.40-5.60) X 10*6/uL Hgb (13.0-17.0) g/dL Hct (39.6-50.0) % MCHC (32.0-37.0) g/dL RDW (11.5-14.5) % Immature Gran # (0.00-0.04) X 10*3/uL Neutrophils # (1.80-7.70) X 10*3/uL Lymphocytes # (0.90-5.00) X 10*3/uL Eosinophils # (0.04-0.35) X 10*3/uL Anion Gap (4.00-12.00) mmol/L BUN (9.0-27.0) mg/dL Est GFR (CKD-EPI) (>=60) BUN/Creatinine Ratio (12.00-20.00) Ratio POC Glucose (mg/dL) 449 H 518 H* 524 H* (70-110) mg/dL Calcium (8.7-10.3) mg/dL AST (14-35) U/L Total Protein (6.2-8.2) g/dL Albumin (3.8-4.9) g/dL Albumin/Globulin Ratio (1.60-3.17) Ratio 07/12/24 07/12/24 07/13/24 Range/Units 22:21 23:56 01:02 WBC (4.50-10.00) X 10*3/uL RBC (4.40-5.60) X 10*6/uL Hgb (13.0-17.0) g/dL Hct (39.6-50.0) % MCHC (32.0-37.0) g/dL RDW (11.5-14.5) % Immature Gran # (0.00-0.04) X 10*3/uL Neutrophils # (1.80-7.70) X 10*3/uL Lymphocytes # (0.90-5.00) X 10*3/uL Eosinophils # (0.04-0.35) X 10*3/uL Anion Gap (4.00-12.00) mmol/L BUN (9.0-27.0) mg/dL Est GFR (CKD-EPI) (>=60) BUN/Creatinine Ratio (12.00-20.00) Ratio POC Glucose (mg/dL) 470 H 397 H 314 H (70-110) mg/dL Calcium (8.7-10.3) mg/dL AST (14-35) U/L Total Protein (6.2-8.2) g/dL Albumin (3.8-4.9) g/dL Albumin/Globulin Ratio (1.60-3.17) Ratio 07/13/24 07/13/24 07/13/24 Range/Units 02:07 03:09 05:06 WBC (4.50-10.00) X 10*3/uL RBC (4.40-5.60) X 10*6/uL Hgb (13.0-17.0) g/dL Hct (39.6-50.0) % MCHC (32.0-37.0) g/dL RDW (11.5-14.5) % Immature Gran # (0.00-0.04) X 10*3/uL Neutrophils # (1.80-7.70) X 10*3/uL Lymphocytes # (0.90-5.00) X 10*3/uL Eosinophils # (0.04-0.35) X 10*3/uL Anion Gap (4.00-12.00) mmol/L BUN (9.0-27.0) mg/dL Est GFR (CKD-EPI) (>=60) BUN/Creatinine Ratio (12.00-20.00) Ratio POC Glucose (mg/dL) 255 H 139 H 132 H (70-110) mg/dL Calcium (8.7-10.3) mg/dL AST (14-35) U/L Total Protein (6.2-8.2) g/dL Albumin (3.8-4.9) g/dL Albumin/Globulin Ratio (1.60-3.17) Ratio 07/13/24 07/13/24 07/13/24 Range/Units 06:05 07:48 07:48 WBC 32.98 H (4.50-10.00) X 10*3/uL RBC 3.07 L (4.40-5.60) X 10*6/uL Hgb 8.8 L (13.0-17.0) g/dL Hct 29.5 L (39.6-50.0) % MCHC 29.8 L (32.0-37.0) g/dL RDW 15.4 H (11.5-14.5) % Immature Gran # 0.42 H (0.00-0.04) X 10*3/uL Neutrophils # 31.43 H (1.80-7.70) X 10*3/uL Lymphocytes # 0.42 L (0.90-5.00) X 10*3/uL Eosinophils # 0 L (0.04-0.35) X 10*3/uL Anion Gap 12.20 H (4.00-12.00) mmol/L BUN 38.5 H (9.0-27.0) mg/dL Est GFR (CKD-EPI) 53 L (>=60) BUN/Creatinine Ratio 29.62 H (12.00-20.00) Ratio POC Glucose (mg/dL) 131 H (70-110) mg/dL Calcium 8.1 L (8.7-10.3) mg/dL AST 36 H (14-35) U/L Total Protein 5.6 L (6.2-8.2) g/dL Albumin 3.4 L (3.8-4.9) g/dL Albumin/Globulin Ratio 1.55 L (1.60-3.17) Ratio 07/13/24 07/13/24 07/13/24 Range/Units 09:05 10:16 11:04 WBC (4.50-10.00) X 10*3/uL RBC (4.40-5.60) X 10*6/uL Hgb (13.0-17.0) g/dL Hct (39.6-50.0) % MCHC (32.0-37.0) g/dL RDW (11.5-14.5) % Immature Gran # (0.00-0.04) X 10*3/uL Neutrophils # (1.80-7.70) X 10*3/uL Lymphocytes # (0.90-5.00) X 10*3/uL Eosinophils # (0.04-0.35) X 10*3/uL Anion Gap (4.00-12.00) mmol/L BUN (9.0-27.0) mg/dL Est GFR (CKD-EPI) (>=60) BUN/Creatinine Ratio (12.00-20.00) Ratio POC Glucose (mg/dL) 116 H 254 H 152 H (70-110) mg/dL Calcium (8.7-10.3) mg/dL AST (14-35) U/L Total Protein (6.2-8.2) g/dL Albumin (3.8-4.9) g/dL Albumin/Globulin Ratio (1.60-3.17) Ratio 07/13/24 07/13/24 Range/Units 12:21 13:03 WBC (4.50-10.00) X 10*3/uL RBC (4.40-5.60) X 10*6/uL Hgb (13.0-17.0) g/dL Hct (39.6-50.0) % MCHC (32.0-37.0) g/dL RDW (11.5-14.5) % Immature Gran # (0.00-0.04) X 10*3/uL Neutrophils # (1.80-7.70) X 10*3/uL Lymphocytes # (0.90-5.00) X 10*3/uL Eosinophils # (0.04-0.35) X 10*3/uL Anion Gap (4.00-12.00) mmol/L BUN (9.0-27.0) mg/dL Est GFR (CKD-EPI) (>=60) BUN/Creatinine Ratio (12.00-20.00) Ratio POC Glucose (mg/dL) 128 H 143 H (70-110) mg/dL Calcium (8.7-10.3) mg/dL AST (14-35) U/L Total Protein (6.2-8.2) g/dL Albumin (3.8-4.9) g/dL Albumin/Globulin Ratio (1.60-3.17) Ratio Assessment and Plan Assessment: Acute on chronic hypoxemic respiratory failure, currently back on his 4 L/min nasal cannula which he wears 18/01, chest x-ray showing severe cervical kyphosis, cardiomegaly, atelectasis. No pleural effusions or pneumothoraces. There is a pacemaker generator in the left chest. NT proBNP only 707. Procalcitonin negative. Antibiotics discontinued Recent influenza infection/hospitalization at outside facility; is positive for influenza A on viral screen at our facility. Acute leukocytosis Possible exacerbation of chronic obstructive pulmonary disease Chronic hypoxemic respiratory failure, on 4 L/min nasal cannula, 18/01, likely secondary to above History of heart failure with unknown ejection fraction Bilateral lower extremity edema, right greater than left. Dopplers negative for DVT History of atrial fibrillation, currently normal sinus rhythm Normocytic, normochromic anemia; monitor for acute blood loss History of hypertension History of hyperlipidemia Plan: The patient was seen and evaluated Chest x-ray, labs and medications reviewed Procalcitonin negative Antibiotics discontinued Continued on bronchodilators Decrease Solu-Medrol Continue diuretics Anticoagulated with Eliquis Plan is to return to [facility] at discharge I have personally seen and examined the patient, performed the documentation and the assessment and plan as written. Number of minutes spent on the visit: 10 Dictation was produced using [employer] dictation software. Please excuse any grammatical, word or spelling errors.
--- NOTE | 2024-07-13 14:25 | P.CRDCN ---
History of Present Illness Consult date: 07/13/24 Reason for Consult (text): Pacemaker not firing correctly History of present illness: This is an 89-year-old male with past medical history of COPD, atrial fibrillation, diabetes, hyperlipidemia, obstructive sleep apnea, history of pacemaker implantation June 2023 at [facility]. We have been asked to evaluate the patient for pacemaker not firing. Patient does not live in the area so this is his first encounter at [facility]. Patient presented to the hospital due to shortness of breath and cough with sputum production. Patient had a recent upper respiratory infection. Patient denies chest pain. Breathing is currently stable and he denies shortness of breath. Blood pressure 147/81, heart rate 60, pulse ox 93% on 4 L nasal cannula. -EKG: Sinus rhythm -Chest x-ray: Bibasilar atelectasis possible left basilar infiltrate. Cardiomegaly and interstitial prominence. -Venous duplex bilateral lower extremity negative for DVT -Laboratory studies: WBC 16.1, hemoglobin 8.6. Sodium 135, potassium 4.7, BUN 44 creatinine 1.13. Troponin negative x 1. proBNP 707. Influenza A positive -Home cardiac medications: Amiodarone 200 mg daily, Eliquis 5 mg twice daily, ferrous sulfate 325 mg daily, losartan 50 mg daily, Lopressor 50 mg twice daily, simvastatin 20 mg at bedtime. -Reviewed pacemaker interrogation. Patient's pacemaker is functioning well although ventricular sensing is somewhat lower but no cause for concern. Threshold high on the RV. His pacemaker was last interrogated on 06/27. Review Of Systems: At the time of my exam: CONSTITUTIONAL: Denies fever or chills. HEENT: Denies blurred vision, vision changes, or eye pain. Denies hemoptysis CARDIOVASCULAR: Denies chest pain. Denies orthopnea. Denies PND. Denies palpitations RESPIRATORY: Denies shortness of breath. GASTROINTESTINAL: Denies abdominal pain. Denies nausea or vomiting. HEMATOLOGIC: Denies bleeding disorders. GENITOURINARY: Denies any blood in urine. SKIN: Denies puritis. Denies rash. Physical examination: Gen: This is an 89-year-old male VS: reviewed HEENT: Head is atraumatic, normocephalic. Pupils equal, round. Sclerae is a nicteric. NECK: Supple. No JVD. LUNGS: Clear to auscultation. No wheezes or rhonchi. No intercostal retractions. HEART: Regular rate and rhythm. No murmur. ABDOMEN: Soft No tenderness. EXTREMITIES: No pedal edema. No calf tenderness. NEUROLOGICAL: Patient is awake, alert and oriented x3. Assessment: Influenza A Anemia, chronic or acute is unknown Pacemaker COPD Atrial fibrillation Diabetes Hyperlipidemia Obstructive sleep apnea Plan: Resume patient's home cardiac medications No further cardiac workup at this time Cardiology will sign off this case and follow on an as-needed basis. Please reconsult for any new concerns. 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 Thank you kindly for this consultation. Nurse practitioner note has been reviewed, I agree with documented findings and plan of care. Patient was seen and examined. Past Medical History Past Medical History: Atrial Fibrillation, COPD, Diabetes Mellitus, Hyperlipidemia, Respiratory Disorder, Sleep Apnea/CPAP/BIPAP History of Any Multi-Drug Resistant Organisms: None Reported Past Surgical History: No Surgical Hx Reported, Pacemaker Type of Cardiac Device: Permanent Pacemaker Device Placement Date:: 04/25/2024 Past Psychological History: No Psychological Hx Reported Smoking Status: Never smoker Past Alcohol Use History: None Reported Past Drug Use History: None Reported Medications and Allergies Home Medications Medication Instructions Recorded Confirmed Type Amiodarone [Cordarone] 200 mg PO DAILY 07/12/24 07/12/24 History Apixaban [Eliquis] 5 mg PO BID 07/12/24 07/12/24 History Budesonide [Pulmicort] 0.5 mg INHALATION RT-BID 07/12/24 07/12/24 History Cholecalciferol [Vitamin D3 (25 25 mcg PO DAILY 07/12/24 07/12/24 History Mcg = 1000 Iu)] Empagliflozin [Jardiance] 10 mg PO DAILY 07/12/24 07/12/24 History Ferrous Sulfate [Feosol] 325 mg PO DAILY 07/12/24 07/12/24 History Gabapentin 600 mg PO HS 07/12/24 07/12/24 History INSULIN LISPRO (HumaLOG) [humaLOG] 5 units SQ AC-TID 07/12/24 07/12/24 History Insulin Glargine,Hum.rec.anlog 15 units SQ HS 07/12/24 07/12/24 History [Lantus Solostar Pen] Ipratropium-Albuterol Nebulize 3 ml INHALATION RT-Q6H 07/12/24 07/12/24 History [Duoneb 0.5 mg-3 mg/3 ml Soln] Losartan [Cozaar] 50 mg PO DAILY 07/12/24 07/12/24 History Metoprolol Tartrate [Lopressor] 50 mg PO BID 07/12/24 07/12/24 History Multivitamins, Thera [Multivitamin 1 tab PO DAILY 07/12/24 07/12/24 History (formulary)] Naloxone HCl 0.4 mg IM BID PRN 07/12/24 07/12/24 History Naloxone HCl [Narcan] 4 mg NASAL BID PRN 07/12/24 07/12/24 History Omeprazole [PriLOSEC] 40 mg PO DAILY 07/12/24 07/12/24 History Pramipexole [Mirapex] 1 mg PO HS 07/12/24 07/12/24 History Simvastatin [Zocor] 20 mg PO HS 07/12/24 07/12/24 History guaiFENesin [guaiFENesin Oral 200 mg PO Q4H PRN 07/12/24 07/12/24 History Solution] Allergies Allergy/AdvReac Type Severity Reaction Status Date / Time warfarin AdvReac Confusion Verified 07/12/24 08:26 Physical Exam Vitals: Vital Signs Temp Pulse Pulse Resp BP BP Pulse Ox 07/13/24 03:30 97.6 F 60 18 124/61 99 07/13/24 00:27 98.1 F 66 18 106/36 98 07/12/24 21:33 111 H 07/12/24 21:18 109 H 07/12/24 20:09 98.1 F 70 18 109/49 100 07/12/24 18:15 98.6 F 89 16 103/60 97 07/12/24 17:41 98 F 87 18 114/57 96 07/12/24 16:00 85 18 100/62 99 07/12/24 15:41 84 07/12/24 15:32 78 07/12/24 15:00 82 20 109/45 97 07/12/24 13:31 80 20 99/48 97 07/12/24 12:28 75 20 118/49 99 07/12/24 11:58 76 07/12/24 11:48 70 07/12/24 11:02 70 20 99/48 96 07/12/24 10:20 73 22 98/44 100 07/12/24 08:42 68 07/12/24 08:32 70 95 07/12/24 08:18 71 22 104/55 97 Intake and Output 07/12/24 07/13/24 07/13/24 22:59 06:59 14:59 Intake Total 30.954 Output Total 1050 Balance -1019.046 Intake: IV 10 Insulin Regular 100 unit 10 In Sodium Chloride 0.9% 100 ml @ Titrate IV .Q0M [facility] Rx#:[id number] Intake, IV Titration 20.954 Amount Insulin Regular 100 unit 20.954 In Sodium Chloride 0.9% 100 ml @ Titrate IV .Q0M [facility] Rx#:[id number] Output: Urine 1050 Other: Voiding Method External Catheter External Catheter # Voids 1 Weight 65.771 kg Results 07/13/24 07:48 07/13/24 07:48 Current Medications Generic Name Dose Route Start Last Admin Trade Name Freq PRN Reason Stop Dose Admin Albuterol/Ipratropium 3 ml 07/12/24 08:00 07/12/24 21:18 Ipratropium-Albuterol 3 Ml Neb INHALATION 3 ml RT-QID ANJUM Administration Albuterol/Ipratropium 3 ml 07/12/24 06:39 Ipratropium-Albuterol 3 Ml Neb INHALATION RT-Q4H PRN Shortness Of Breath Or Wheezing Amiodarone HCl 200 mg 07/12/24 10:45 07/12/24 11:03 Amiodarone 200 Mg Tab PO 200 mg DAILY ANJUM Administration Apixaban 5 mg 07/12/24 10:45 07/12/24 21:11 Apixaban 5 Mg Tab PO 5 mg BID ANJUM Administration Protocol Atorvastatin Calcium 10 mg 07/12/24 21:00 07/12/24 21:10 Atorvastatin 10 Mg Tab PO 10 mg HS ANJUM Administration Azithromycin 500 mg 07/12/24 09:00 07/12/24 08:06 Azithromycin 500 Mg Tab PO 07/14/24 09:01 500 mg DAILY ANJUM Administration Protocol Budesonide 0.5 mg 07/12/24 10:35 07/12/24 21:18 Budesonide 0.5 Mg/2 Ml Nebu INHALATION 0.5 mg RT-BID ANJUM Administration Cholecalciferol 25 mcg 07/12/24 10:45 07/12/24 11:03 Cholecalciferol 25 Mcg (1000 Iu) Tablet PO 25 mcg DAILY ANJUM Administration Dapagliflozin 5 mg 07/12/24 10:45 07/12/24 11:03 Dapagliflozin Propanediol 5 Mg Tablet PO 5 mg DAILY ANJUM Administration Dextrose/Water 25 ml 07/12/24 23:14 Dextrose 50% Syringe 50 Ml IVP PER PROTOCOL PRN Hypoglycemia Protocol Dextrose/Water 50 ml 07/12/24 23:14 Dextrose 50% Syringe 50 Ml IVP PER PROTOCOL PRN Hypoglycemia Protocol Ferrous Sulfate 325 mg 07/13/24 09:00 Ferrous Sulfate 325 Mg Tab PO DAILY ANJUM Furosemide 20 mg 07/12/24 09:00 07/12/24 08:05 Furosemide 10 Mg/Ml 2 Ml Vial IV 20 mg DAILY ANJUM Administration Gabapentin 600 mg 07/12/24 21:00 07/12/24 21:11 Gabapentin 300 Mg Cap PO 600 mg HS ANJUM Administration Sodium Chloride 1,000 mls @ 20 mls/hr 07/12/24 05:15 07/13/24 05:02 Saline 0.9% IV Not Given .Q24H ANJUM Ceftriaxone Sodium 1 gm/ 50 mls @ 100 mls/hr 07/13/24 09:00 Sodium Chloride IVPB Q24HR ANJUM Protocol Insulin Human Regular 100 unit 100 mls @ 0 mls/hr 07/12/24 23:30 07/13/24 03:09 / Sodium Chloride IV 0 units/hr .Q0M ANJUM 0 mls/hr Titration Protocol Titrate Insulin Detemir 36 unit 07/12/24 21:00 07/12/24 21:50 Insulin Detemir (Levemir) 100 Unit/Ml Syr SQ 36 unit HS ANJUM Administration Methylprednisolone Sodium Succinate 40 mg 07/12/24 08:00 07/12/24 23:27 Methylprednisolone Sod Succi 40 Mg/Ml 1 Ml Vial IV 40 mg Q8HR ANJUM Administration Metoprolol Tartrate 25 mg 07/12/24 10:45 07/12/24 21:11 Metoprolol Tartrate 25 Mg Tab PO 25 mg BID ANJUM Administration Multivitamins 1 each 07/13/24 09:00 Multivitamins, Thera 1 Each Tab PO DAILY ANJUM Naloxone HCl 0.2 mg 07/12/24 05:05 Naloxone 0.4 Mg/Ml 1 Ml Vial IV Q2M PRN Opioid Reversal Ondansetron HCl 4 mg 07/12/24 05:05 Ondansetron 4 Mg/2 Ml Vial IVP Q8HR PRN Nausea And Vomiting Pantoprazole Sodium 40 mg 07/12/24 07:30 07/13/24 06:21 Pantoprazole 40 Mg Tablet PO 40 mg AC-BRKFST ANJUM Administration Pramipexole Dihydrochloride 1 mg 07/12/24 21:00 07/12/24 21:10 Pramipexole 1 Mg Tab PO 1 mg HS ANJUM Administration Intake and Output 07/12/24 07/13/24 07/13/24 22:59 06:59 14:59 Intake Total 30.954 Output Total 1050 Balance -1019.046 Intake: IV 10 Insulin Regular 100 unit 10 In Sodium Chloride 0.9% 100 ml @ Titrate IV .Q0M [facility] Rx#:[id number] Intake, IV Titration 20.954 Amount Insulin Regular 100 unit 20.954 In Sodium Chloride 0.9% 100 ml @ Titrate IV .Q0M [facility] Rx#:[id number] Output: Urine 1050 Other: Voiding Method External Catheter External Catheter # Voids 1 Weight 65.771 kg 07/12/24 04:43 07/12/24 04:43
--- NOTE | 2024-07-13 14:36 | P.PN ---
Progress Note - Text Progress Note Date: 07/13/24 I am covering for Dr. Star Max, who is unwell Pleasant 89-year-old patient who follows with Dr. Costa. Patient was initially treated at [facility] diagnosed with influenza A. Patient then was admitted to [facility] for rehab for about 3 weeks. In the last 5 days patient became increasingly short of breath. Cough. No fever. Appetite okay. Normally uses oxygen 4 L. As per the EMS report patient had dropped his pulse ox at midnight. Patient is given albuterol treatments prednisone Mucinex. His pulse ox dropped again. Patient also having expiratory wheezing. Patient then transported on 5 L of oxygen. Patient now signed in the ER. Family at the bedside including his . Patient actually feeling a bit better. Patient again tested positive for influenza A. Patient was seen by pulmonary Dr. Riley earlier today. Given that symptoms present for some time not for any Tamiflu for now nucleated July 13: Sitting up in bed. Breathing better. To tolerate diet. Family at the bedside. Cut back IV Solu-Medrol to 20 mg every 8. Reminded to use incentive spirometry. Patient was on insulin drip sugars were running high. On sliding scale insulin. Procalcitonin came back negative. Pulmonary discontinued antibiotic. Active Medications Albuterol/Ipratropium (Ipratropium-Albuterol 3 Ml Neb) 3 ml INHALATION RT-QID [facility] Last Admin: 07/13/24 08:03 Dose: 3 ml Albuterol/Ipratropium (Ipratropium-Albuterol 3 Ml Neb) 3 ml INHALATION RT-Q4H PRN PRN Reason: Shortness Of Breath Or Wheezing Amiodarone HCl (Amiodarone 200 Mg Tab) 200 mg PO DAILY [facility] Last Admin: 07/13/24 08:41 Dose: 200 mg Apixaban (Apixaban 5 Mg Tab) 5 mg PO BID [facility]; Protocol Last Admin: 07/13/24 08:41 Dose: 5 mg Atorvastatin Calcium (Atorvastatin 10 Mg Tab) 10 mg PO HS [facility] Last Admin: 07/12/24 21:10 Dose: 10 mg Budesonide (Budesonide 0.5 Mg/2 Ml Nebu) 0.5 mg INHALATION RT-BID [facility] Last Admin: 07/13/24 08:03 Dose: 0.5 mg Cholecalciferol (Cholecalciferol 25 Mcg (1000 Iu) Tablet) 25 mcg PO DAILY [facility] Last Admin: 07/13/24 08:41 Dose: 25 mcg Dapagliflozin (Dapagliflozin Propanediol 5 Mg Tablet) 5 mg PO DAILY [facility] Last Admin: 07/13/24 08:41 Dose: 5 mg Dextrose/Water (Dextrose 50% Syringe 50 Ml) 25 ml IVP PER PROTOCOL PRN; Protocol PRN Reason: Hypoglycemia Dextrose/Water (Dextrose 50% Syringe 50 Ml) 50 ml IVP PER PROTOCOL PRN; Protocol PRN Reason: Hypoglycemia Ferrous Sulfate (Ferrous Sulfate 325 Mg Tab) 325 mg PO DAILY [facility] Last Admin: 07/13/24 08:41 Dose: 325 mg Furosemide (Furosemide 10 Mg/Ml 2 Ml Vial) 20 mg IV DAILY [facility] Last Admin: 07/13/24 08:40 Dose: 20 mg Gabapentin (Gabapentin 300 Mg Cap) 600 mg PO [facility] Last Admin: 07/12/24 21:11 Dose: 600 mg Sodium Chloride (Saline 0.9%) 1,000 mls @ 20 mls/hr IV .Q24H [facility] Last Admin: 07/13/24 05:02 Dose: Not Given Insulin Aspart (Insulin Aspart (Novolog) 100 Unit/Ml Vial) 0 unit SQ [facility]; Protocol Insulin Detemir (Insulin Detemir (Levemir) 100 Unit/Ml Syr) 36 unit SQ [facility] Last Admin: 07/12/24 21:50 Dose: 36 unit Methylprednisolone Sodium Succinate (Methylprednisolone Sod Succi 40 Mg/Ml 1 Ml Vial) 20 mg IV Q8HR [facility] Metoprolol Tartrate (Metoprolol Tartrate 25 Mg Tab) 25 mg PO BID [facility] Last Admin: 07/13/24 08:41 Dose: 25 mg Multivitamins (Multivitamins, Thera 1 Each Tab) 1 each PO DAILY [facility] Last Admin: 07/13/24 08:41 Dose: 1 each Naloxone HCl (Naloxone 0.4 Mg/Ml 1 Ml Vial) 0.2 mg IV Q2M PRN PRN Reason: Opioid Reversal Ondansetron HCl (Ondansetron 4 Mg/2 Ml Vial) 4 mg IVP Q8HR PRN PRN Reason: Nausea And Vomiting Pantoprazole Sodium (Pantoprazole 40 Mg Tablet) 40 mg PO AC-BRKFST [facility] Last Admin: 07/13/24 06:21 Dose: 40 mg Pramipexole Dihydrochloride (Pramipexole 1 Mg Tab) 1 mg PO HS [facility] Last Admin: 07/12/24 21:10 Dose: 1 mg Social history: Currently getting rehab at [facility]. He and his are living with the daughter prior to that. 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 EYES: Pupils equal. Conjunctiva mahad l. HEENT: External appearance of nose and ears normal, oral cavity grossly normal. NECK: JVD not raised; masses not palpable. HEART: First and second heart sounds are normal; no edema. LUNGS: Respiratory rate increased, diminished breath sounds, few basal crackles ABDOMEN: Soft, nontender, liver spleen not palpable, no masses palpable. PSYCH: Alert and oriented x3; mood and affect mahad l. MUSCULOSKELETAL:No Clubbing/cyanosis;muscles-grossly intact. Kyphotic. OA. INVESTIGATIONS, reviewed in the clinical context: July 12, 2024: White count 16.1 hemoglobin 8.6 platelets 154 ABG: pH 7.3 pCO2 63 sodium 135 potassium 4.7 BUN 44 creatinine 1.13 blood glucose 257 Influenza type A PCR detected [influenza type B, RSV, COVID-19: Not detected] EKG tracing personally reviewed by me-normal sinus rhythm. Chest x-ray film personally reviewed by me-atelectasis/infiltrate Venous ultrasound Doppler lower extremity: Negative for DVT Assessment plan: -No pneumonia per pulmonary. Antibiotic discontinued Normal procalcitonin -Acute COPD exacerbation: Improving IV Solu-Medrol cut back to 20 mg every 8. DuoNeb. -Acute on chronic hypoxic respiratory failure.: Improving Patient normally on 4 L of oxygen. Initially using 5 L. Now down to 4 L. -Kyphosis -Hyperlipidemia Zocor 20 mg nightly -Restless leg syndrome Mirapex 1 mg nightly -Chronic medical debility. At the baseline does use a cane. Currently at rehab at [facility] -GERD PPI -Essential hypertension Lopressor 50 mg twice daily. Cozaar 50 mg a day. -Paroxysmal atrial fibrillation currently in sinus rhythm Eliquis. Amiodarone. Lopressor 25 mg twice daily -Full code -Diabetes mellitus type 2, chronically on insulin, uncontrolled with hyperglycemia secondary to steroids Lantus 36 units at night. Continue oral medications. Accu-Cheks with sliding scale insulin. Has been on insulin drip. Will discontinue Antibiotics discontinued per pulmonary. Patient be taken off insulin drip. Discussed with patient family at bedside. Hopefully discharge to rehab tomorrow Past Medical History Past Medical History: Atrial Fibrillation, COPD, Diabetes Mellitus, Hyperlipidemia, Respiratory Disorder, Sleep Apnea/CPAP/BIPAP History of Any Multi-Drug Resistant Organisms: None Reported Past Surgical History: No Surgical Hx Reported, Pacemaker Past Psychological History: No Psychological Hx Reported Smoking Status: Never smoker Past Alcohol Use History: None Reported Past Drug Use History: None Reported
[2024-07-13 14:54] LABS: African American GFR (CKD) 63 (>60 ml/min/1.73 sqM); Anion Gap 1 mmol/L; Blood Urea Nitrogen 45 mg/dL (9-20); Calcium 7.9 mg/dL (8.4-10.2); Carbon Dioxide 38 mmol/L (22-30); Chloride 95 mmol/L (98-107); Glucose 169 mg/dL (74-99); Non-African American GFR(CKD) 54 (>60 ml/min/1.73 sqM); Potassium 4.6 mmol/L (3.5-5.1); Sodium 134 mmol/L (137-145)
[2024-07-13 16:55] LABS: Glucose,Whole Blood 193 mg/dL (70-110)
[2024-07-13] MEDS: INSULIN ASPART (NovoLOG) 100 UNIT/ML VIAL SQ SCH (17:18)
[2024-07-13] MEDS: methylPREDNISolone SOD SUCCI 40 MG/ML 1 ML VIAL IV SCH (17:18)
[2024-07-13 20:37] LABS: Glucose,Whole Blood 242 mg/dL (70-110)
[2024-07-14 06:22] LABS: Glucose,Whole Blood 80 mg/dL (70-110)
[2024-07-14 08:37] LABS: African American GFR (CKD) 72 (>60 ml/min/1.73 sqM); Anion Gap 5 mmol/L; Blood Urea Nitrogen 51 mg/dL (9-20); Calcium 8.1 mg/dL (8.4-10.2); Carbon Dioxide 35 mmol/L (22-30); Chloride 97 mmol/L (98-107); Glucose 68 mg/dL (74-99); Non-African American GFR(CKD) 62 (>60 ml/min/1.73 sqM); Potassium 4.6 mmol/L (3.5-5.1); Sodium 137 mmol/L (137-145)
[2024-07-14 08:51] VITALS: RESP 17
[2024-07-14 11:17] VITALS: BP 127/77; TEMP 97.7
[2024-07-14 11:32] LABS: Glucose,Whole Blood 186 mg/dL (70-110)
--- NOTE | 2024-07-14 13:29 | P.DS ---
Providers Date of admission: 07/12/24 05:06 Expected date of discharge: 07/14/24 Attending physician: Star Max Consults: 07/12/24 05:05 Consult Physician Routine Consulting Provider: Betty Delcid Consult Reason/Comments: hypoxia Do you want consulting provider notified?: Yes 07/12/24 19:15 Consult Physician Routine Consulting Provider: Nash Chaves Consult Reason/Comments: pacemaker not firing correctly. Do you want consulting provider notified?: Yes Primary care physician: Physician Nonstaff Hospital Course: I am covering for Dr. Star Max, who is unwell Pleasant 89-year-old patient who follows with Dr. Costa. Patient was initially treated at [facility] diagnosed with influenza A. Patient then was admitted to [facility] for rehab for about 3 weeks. In the last 5 days patient became increasingly short of breath. Cough. No fever. Appetite okay. Normally uses oxygen 4 L. As per the EMS report patient had dropped his pulse ox at midnight. Patient is given albuterol treatments prednisone Mucinex. His pulse ox dropped again. Patient also having expiratory wheezing. Patient then transported on 5 L of oxygen. Patient now signed in the ER. Family at the bedside including his . Patient actually feeling a bit better. Patient again tested positive for influenza A. Patient was seen by pulmonary Dr. Riley earlier today. Given that symptoms present for some time not for any Tamiflu for now nucleated July 13: Sitting up in bed. Breathing better. To tolerate diet. Family at the bedside. Cut back IV Solu-Medrol to 20 mg every 8. Reminded to use incentive spirometry. Patient was on insulin drip sugars were running high. On sliding scale insulin. Procalcitonin came back negative. Pulmonary discontinued antibiotic. July 14: Up in a chair. Feeling well. Feels back to his baseline. 99% on 4 L. Decrease FiO2. Will discharge on tapering dose of prednisone. Patient returned to the [facility]. JOSIAH Ramirez. Discussion and discharge planning more than 35 minutes Social history: Currently getting rehab at [facility]. He and his are living with the daughter prior to that. 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 Conjunctiva mahad l. HEENT: External appearance of nose and ears normal, oral cavity grossly normal. NECK: JVD not raised; masses not palpable. HEART: First and second heart sounds are normal; no edema. LUNGS: Respiratory rate i normal Shayla diminished breath sounds, ABDOMEN: Soft, nontender, liver spleen not palpable, no masses palpable. PSYCH: Alert and oriented x3; mood and affect mahad l. MUSCULOSKELETAL:No Clubbing/cyanosis;muscles-grossly intact. Kyphotic. OA. INVESTIGATIONS, reviewed in the clinical context: July 14: Potassium 4.6 BUN 51 creatinine 1.06 July 12, 2024: White count 16.1 hemoglobin 8.6 platelets 154 ABG: pH 7.3 pCO2 63 sodium 135 potassium 4.7 BUN 44 creatinine 1.13 blood glucose 257 Influenza type A PCR detected [influenza type B, RSV, COVID-19: Not detected] EKG tracing personally reviewed by me-normal sinus rhythm. Chest x-ray film personally reviewed by me-atelectasis/infiltrate Venous ultrasound Doppler lower extremity: Negative for DVT Assessment plan: -No pneumonia per pulmonary. Antibiotic discontinued Normal procalcitonin -Acute COPD exacerbation: Improving IV Solu-Medrol cut back to 20 mg every 8. DuoNeb. Discharged on prednisone taper -Acute on chronic hypoxic respiratory failure.: Improving Patient normally on 4 L of oxygen. Initially using 5 L. Now down to 4 L. -Kyphosis -Hyperlipidemia Zocor 20 mg nightly -Restless leg syndrome Mirapex 1 mg nightly -Chronic medical debility. At the baseline does use a cane. Currently at rehab at [facility] -GERD PPI -Essential hypertension Lopressor 25 mg twice daily. Cozaar 50 mg a day. -Paroxysmal atrial fibrillation currently in sinus rhythm Eliquis. Amiodarone. Lopressor 25 mg twice daily -Full code -Diabetes mellitus type 2, chronically on insulin, uncontrolled with hyperglycemia secondary to steroids Lantus 36 units at night. Continue oral medications. Accu-Cheks with sliding scale insulin. Has been on insulin drip. Will discontinue Disposition: Rehab at [facility] Past Medical History Past Medical History: Atrial Fibrillation, COPD, Diabetes Mellitus, Hyperlipidemia, Respiratory Disorder, Sleep Apnea/CPAP/BIPAP History of Any Multi-Drug Resistant Organisms: None Reported Past Surgical History: No Surgical Hx Reported, Pacemaker Past Psychological History: No Psychological Hx Reported Smoking Status: Never smoker Past Alcohol Use History: None Reported Past Drug Use History: None Reported Plan - Discharge Summary Discharge Rx Participant: No New Discharge Prescriptions: New Atorvastatin [Lipitor] 10 mg PO HS tab Metoprolol Tartrate [Lopressor] 25 mg PO BID tab Pantoprazole [Protonix] 40 mg PO AC-BRKFST tab Continue Cholecalciferol [Vitamin D3 (25 Mcg = 1000 Iu)] 25 mcg PO DAILY Empagliflozin [Jardiance] 10 mg PO DAILY guaiFENesin [guaiFENesin Oral Solution] 200 mg PO Q4H PRN PRN Reason: Cough INSULIN LISPRO (HumaLOG) [humaLOG] 5 units SQ AC-TID Apixaban [Eliquis] 5 mg PO BID Amiodarone [Cordarone] 200 mg PO DAILY Naloxone HCl 0.4 mg IM BID PRN PRN Reason: suspected overdose Pramipexole [Mirapex] 1 mg PO HS Omeprazole [PriLOSEC] 40 mg PO DAILY Multivitamins, Thera [Multivitamin (formulary)] 1 tab PO DAILY Ipratropium-Albuterol Nebulize [Duoneb 0.5 mg-3 mg/3 ml Soln] 3 ml INHALATION RT-Q6H Gabapentin 600 mg PO HS Ferrous Sulfate [Iron (65 MG Elemental)] 325 mg PO DAILY Budesonide [Pulmicort] 0.5 mg INHALATION RT-BID Changed Losartan [Cozaar] 50 mg PO DAILY@1300 #0 Insulin Glargine,Hum.rec.anlog [Lantus Solostar Pen] 30 units SQ HS #0 Discontinued Naloxone HCl [Narcan] 4 mg NASAL BID PRN PRN Reason: suspected overdose Metoprolol Tartrate [Lopressor] 50 mg PO BID Simvastatin [Zocor] 20 mg PO HS Discharge Medication List Amiodarone [Cordarone] 200 mg PO DAILY 07/12/24 [History] Apixaban [Eliquis] 5 mg PO BID 07/12/24 [History] Budesonide [Pulmicort] 0.5 mg INHALATION RT-BID 07/12/24 [History] Cholecalciferol [Vitamin D3 (25 Mcg = 1000 Iu)] 25 mcg PO DAILY 07/12/24 [History] Empagliflozin [Jardiance] 10 mg PO DAILY 07/12/24 [History] Ferrous Sulfate [Iron (65 MG Elemental)] 325 mg PO DAILY 07/12/24 [History] Gabapentin 600 mg PO HS 07/12/24 [History] INSULIN LISPRO (HumaLOG) [humaLOG] 5 units SQ AC-TID 07/12/24 [History] Ipratropium-Albuterol Nebulize [Duoneb 0.5 mg-3 mg/3 ml Soln] 3 ml INHALATION RT-Q6H 07/12/24 [History] Multivitamins, Thera [Multivitamin (formulary)] 1 tab PO DAILY 07/12/24 [History] Naloxone HCl 0.4 mg IM BID PRN 07/12/24 [History] Omeprazole [PriLOSEC] 40 mg PO DAILY 07/12/24 [History] Pramipexole [Mirapex] 1 mg PO HS 07/12/24 [History] guaiFENesin [guaiFENesin Oral Solution] 200 mg PO Q4H PRN 07/12/24 [History] Atorvastatin [Lipitor] 10 mg PO HS tab 07/14/24 [Rx] Insulin Glargine,Hum.rec.anlog [Lantus Solostar Pen] 30 units SQ HS #0 07/14/24 [Rx] Losartan [Cozaar] 50 mg PO DAILY@1300 #0 07/14/24 [Rx] Metoprolol Tartrate [Lopressor] 25 mg PO BID tab 07/14/24 [Rx] Pantoprazole [Protonix] 40 mg PO AC-BRKFST tab 07/14/24 [Rx] Follow up Appointment(s)/Referral(s): Marysol Coto DO [REFERRING] - 1-2 days
[2024-07-14 14:54] VITALS: PULSE 68
--- NOTE | 2024-07-14 17:09 | P.PN ---
Subjective Progress Note Date: 07/14/24 Principal diagnosis: Acute on chronic hypoxic respiratory failure, multifactorial Patient sent in from [facility] this morning, after being noted to be short of breath and hypoxic with an SpO2 of 65%. Patient is a poor historian; however, his family is present at bedside and able to supplement HPI. Patient is an 89-year-old male with past medical history significant for COPD, chronic oxygen dependence on 4 L/min nasal cannula 18/01, heart failure, pacemaker, atrial fibrillation, diabetes mellitus, hypertension, hyperlipidemia, among other things. Patient is actually from [place], was at [facility] for rehab after being treated at an outside hospital for influenza/pneumonia approximately 1 to 2 weeks ago per patient's . While at [facility], reportedly noted to be short of breath and hypoxic with an SpO2 of 65%, EMS was called and patient was transferred to [facility]. He is currently being evaluated the emergency department, room 1. He is sleeping in bed, arouses to verbal stimu and brief questioning, then falls back asleep. He is an overall poor historian. He has severe kyphosis of the spine. He is on 4 L/min nasal cannula, does not appear distressed. SpO2 is reading 93% on bedside monitor. Family states that he chronically wears 4 L of oxygen. They also state he has COPD, but has never been a tobacco smoker. He did had a VBG which showed a pH of 7.36 and pCO2 of 63. Chest x-ray done in the emergency department showing severe cervical kyphosis, cardiomegaly, bibasilar atelectasis, with possible left basilar infiltrate. No pleural effusions or pneumothoraces. There is a pacemaker generator in the left chest. Does have pitting lower extremity edema right greater than left. He was afebrile on admission. CBC: WBC count 16.1, hemoglobin 8.6, hematocrit 27.8, platelets 154. CMP: Sodium 135, potassium 4.7, chloride 98, serum bicarb 36, BUN 44, creatinine 1.13, glucose 257. LFTs unremarkable. Troponin 0.016. NT proBNP 707. EKG: Normal sinus rhythm, rate 66 bpm, no obvious acute ischemic changes. Cepheid 4 Plex pending. Current most recent vitals: Temperature 98.1 F, heart rate 68 bpm, blood pressure 92/53 mmHg, tachypneic breathing in the mid 20s, SpO2 is 93% on 4 L/min nasal cannula. The patient is seen today July 13, 2024 in follow-up of the selective care unit. He is currently sitting up in bed. Awake and alert in no acute distress. Maintaining O2 saturations in the 90s on 4 L/min per nasal cannula. He remains on DuoNeb inhalations, Pulmicort inhalations, Solu-Medrol. Anticoagulated with Eliquis. Remains on IV Lasix. Remains on ceftriaxone and azithromycin. White count 32.9. Hemoglobin 8.8. Platelets 155. Sodium 141. Potassium 4.4. Bicarb 29. BUN 38. Creatinine 1.3. Glucose 143. Procalcitonin was negative at 0.09. Chest x-ray shows stable exam with cardiomegaly and interstitial prominence. Patient was seen today on 07/14/2024, patient is doing well, asymptomatic, feeling much better compared to how he felt when he came in. Again his chest x- ray did not clearly show pneumonia, his procalcitonin level is normal, had mostly atelectasis, and he has other clinical findings to explain his chronic hypoxic respiratory failure. Today the patient is feeling great, he is back to his baseline, and he would like to be discharged home. Labs including basic m etabolic profile is normal Objective - Vital Signs Vital signs: Vital Signs Temp 97.7 F 07/14/24 11:15 Pulse 68 07/14/24 14:54 Resp 17 07/14/24 11:15 BP 127/77 07/14/24 11:15 Pulse Ox 99 07/14/24 11:15 FiO2 Intake & Output 07/13/24 07/14/24 07/14/24 18:59 06:59 18:59 Intake Total 703.334 236 Output Total 950 700 Balance 703.334 950 466 Weight 65 kg Intake: Intake, IV Titration 3.334 Amount Insulin Regular 100 unit 3.334 In Sodium Chloride 0.9% 100 ml @ Titrate IV .Q0M [facility] Rx#:[id number] Oral 700 236 Output: Urine 950 700 Other: Voiding Method External Catheter External Catheter External Catheter - Exam GENERAL EXAM: A 89-year-old pleasant in no distress on 4 L nasal cannula HEAD: Normocephalic and atraumatic EYES: Normal reaction of pupils, equal size. NOSE: Clear with pink turbinates. THROAT: No erythema or exudates. NECK: No masses, no JVD. Severe kyphosis CHEST: No chest wall deformity. Left chest implanted device. LUNGS: Diminished breath sound bilaterally no crackles rhonchi or wheezes CVS: S1 and S2 normal with no audible murmur, regular rhythm. No extra heart sounds ABDOMEN: No hepatosplenomegaly, active bowel sounds, no guarding or rigidity. SPINE: Kyphoscoliosis SKIN: No rashes CENTRAL NERVOUS SYSTEM: Alert and oriented x 3 no gross focal deficit EXTREMITIES: There is 2-3+ pitting lower extremity edema - Labs CBC & Chem 7: 07/13/24 07:48 07/14/24 06:46 Labs: Abnormal Lab Results - Last 24 Hours (Table) 07/13/24 07/14/24 07/14/24 Range/Units 20:36 06:46 11:29 Chloride 97 L (98-107) mmol/L Carbon Dioxide 35 H (22-30) mmol/L BUN 51 H (9-20) mg/dL Glucose 68 L (74-99) mg/dL POC Glucose (mg/dL) 242 H 186 H (70-110) mg/dL Calcium 8.1 L (8.4-10.2) mg/dL Microbiology - Last 24 Hours (Table) 07/12/24 07:22 Blood Culture - Preliminary Blood Assessment and Plan Plan: Impression: Acute on chronic hypoxemic respiratory failure, multifactorial as noted previously in our notes Recent influenza infection/hospitalization at outside facility; is positive for influenza A on viral screen at our facility. Acute leukocytosis Possible exacerbation of chronic obstructive pulmonary disease Chronic hypoxemic respiratory failure, on 4 L/min nasal cannula, 18/01, likely secondary to above History of heart failure with unknown ejection fraction Bilateral lower extremity edema, right greater than left. Dopplers negative for DVT History of atrial fibrillation, currently normal sinus rhythm History of hyperlipidemia Recommendation: We have discontinued his antibiotics as his procalcitonin level was normal Continue bronchodilators Continue Eliquis Consider discharge planning to [facility] today. Will clear for discharge if cleared by other consultants Time with Patient: Less than 30
== END 2024-07-14 15:03 | DRG 190 ==
LOC: EC 04:12 → 4SSUR 05:06 → 3SCARD 23:00
PROVIDERS: ADMIT Family Medicine; ATTEND Family Medicine
PROC: 4B02XSZ Measurement of Cardiac Pacemaker, External Approach (ICD-10-PCS; principal; 2024-07-13)
DX: J44.1 Chronic obstructive pulmonary disease with (acute) exacerbation (principal); J96.21 Acute and chronic respiratory failure with hypoxia; D64.9 Anemia, unspecified; I11.0 Hypertensive heart disease with heart failure; I50.9 Heart failure, unspecified; E11.9 Type 2 diabetes mellitus without complications; G25.81 Restless legs syndrome; E78.5 Hyperlipidemia, unspecified; I48.0 Paroxysmal atrial fibrillation; J98.11 Atelectasis; J10.1 Influenza due to other identified influenza virus with other respiratory manifestations; M40.202 Unspecified kyphosis, cervical region; R53.81 Other malaise; G47.33 Obstructive sleep apnea (adult) (pediatric); Z79.01 Long term (current) use of anticoagulants; Z79.4 Long term (current) use of insulin; Z79.51 Long term (current) use of inhaled steroids; Z79.84 Long term (current) use of oral hypoglycemic drugs; Z79.899 Other long term (current) drug therapy; Z95.0 Presence of cardiac pacemaker; Z99.81 Dependence on supplemental oxygen; Z88.0 Allergy status to penicillin
CPT/HCPCS: 36415; 71045; 80048; 80053; 82803; 83735; 83880; 84145; 84484; 85025; 85610; 85730; 87040; 87636; 93005; 93970; 94640; 96361; 96365; 96372; 96375; 96376; 99285